=== PATIENT | female | born 1975 | race Caucasian/White ===

== ENCOUNTER 2022-01-27 08:55 | Emergency (ER) | payer OTHER ==
[2022-01-27 09:34] LABS: HEMOGLOBIN 14.3 gm/dl (12.3-15.3); RED BLOOD COUNT 4.5 M/UL (4.00-5.10); WHITE BLOOD COUNT 12.1 K/UL (4.5-11.0)
[2022-01-27 10:17] LABS: BUN/CREATININE RATIO 18 (0-10)
== END 2022-01-27 11:46 | disposition home or self-care (01) ==
LOC: ER1 08:55
PROVIDERS: Emergency Medicine
DX: R51.9 Headache, unspecified (principal); E78.5 Hyperlipidemia, unspecified; I10 Essential (primary) hypertension; F17.200 Nicotine dependence, unspecified, uncomplicated
CPT/HCPCS: 70450; 80053; 85025; 85652; 96374; 96375; 99284; J2270; J2405